=== PATIENT | male | born 1950 | race Caucasian/White ===

== ENCOUNTER 2018-07-09 10:06 | Outpatient (REF) | payer MEDICARE, SELFPAY ==
[2018-07-09 12:21] LABS: Anion Gap 8.7 mmol/L (3-11); BUN 20 mg/dL (7-18); CO2 27.3 mmol/L (21.0-32.0); CREATININE 0.92 mg/dL (0.70-1.30); Calcium 8.8 mg/dL (8.5-10.1); Chloride 106 mmol/L (98-107); Glucose 102 mg/dL (70-100); Sodium 142 mmol/L (136-145)
== END 2018-07-09 10:26 ==
LOC: NCHCN 10:06
PROVIDERS: PCP Internal Medicine; Visit Provider Internal Medicine
DX: I10 Essential (primary) hypertension (principal); N40.0 Benign prostatic hyperplasia without lower urinary tract symptoms; E66.9 Obesity, unspecified
CPT/HCPCS: 80048

== ENCOUNTER 2019-09-13 19:58 | Outpatient (REF) | payer MEDICARE, SELFPAY ==
[2019-09-13 20:39] LABS: Anion Gap 9.8 mmol/L (3-11); BUN 19 mg/dL (7-18); CO2 27.2 mmol/L (21.0-32.0); CREATININE 1.11 mg/dL (0.70-1.30); Calcium 9.1 mg/dL (8.5-10.1); Chloride 105 mmol/L (98-107); Glucose 95 mg/dL (74-106); Potassium 4.1 mmol/L (3.5-5.1); Sodium 142 mmol/L (136-145)
== END 2019-09-13 20:18 ==
LOC: NCHCN 19:58
PROVIDERS: PCP Internal Medicine; Visit Provider Internal Medicine
DX: I10 Essential (primary) hypertension (principal); E66.9 Obesity, unspecified
CPT/HCPCS: 80048

== ENCOUNTER 2020-10-02 08:11 | Outpatient (REF) | payer MEDICARE, SELFPAY ==
[2020-10-02 15:43] LABS: Anion Gap 11.3 mmol/L (3-11); BUN 22 mg/dL (7-18); CO2 24.7 mmol/L (21.0-32.0); CREATININE 1.1 mg/dL (0.70-1.30); Calcium 8.6 mg/dL (8.5-10.1); Chloride 109 mmol/L (98-107); Glucose 137 mg/dL (74-106); Potassium 3.9 mmol/L (3.5-5.1); Sodium 145 mmol/L (136-145); TSH 1.41 uIU/mL (0.36-3.74)
== END 2020-10-02 08:12 | disposition home or self-care (01) ==
LOC: NCHCN 08:11
PROVIDERS: PCP Internal Medicine; Visit Provider Internal Medicine
DX: I10 Essential (primary) hypertension (principal); E66.9 Obesity, unspecified
CPT/HCPCS: 80048; 84443

== ENCOUNTER 2021-04-16 14:46 | Outpatient (REF) | payer MEDICARE, SELFPAY ==
[2021-04-19 13:48] LABS: Testosterone, Free 9.66 ng/dL (3.47-13.0); Testosterone, Total 420 ng/dL (240-950)
== END 2021-04-16 14:47 | disposition home or self-care (01) ==
LOC: NCHCN 14:46
PROVIDERS: PCP Internal Medicine; Visit Provider Family Medicine
DX: F52.21 Male erectile disorder (principal); R53.83 Other fatigue
CPT/HCPCS: 84402; 84403

== ENCOUNTER 2021-10-25 16:10 | Outpatient (REF) | payer MEDICARE, SELFPAY ==
[2021-10-25 20:19] LABS: HCT 41.7 % (40.0-50.0); HGB 13.8 g/dL (13.5-17.5); MCH 28.5 pg (27.0-33.0); MCHC 33.1 % (32.0-36.0); MCV 86 fL (80-95); MPV 9.8 fL (8.0-11.0); Platelet Count 221 10^3/uL (130-400); RBC 4.85 10^6/uL (4.36-5.78); RDW 13.3 % (11.8-14.1); RDW-SD 41.6 fL
[2021-10-25 20:35] LABS: Hemoglobin A1C 5.6 % (<5.7)
[2021-10-25 20:36] LABS: ALT 20 U/L (16-63); AST 19 U/L (15-37); Albumin 3.6 g/dL (3.4-5.0); Alkaline Phosphatase 79 U/L (46-116); Anion Gap 6.2 mmol/L (3-11); BUN 21 mg/dL (7-18); Bilirubin, Total 0.7 mg/dL (0.2-1.0); CO2 27.8 mmol/L (21.0-32.0); Calcium 8.8 mg/dL (8.5-10.1); Calculated LDL 121 mg/dL (<100); Chloride 108 mmol/L (98-107); Cholesterol 175 mg/dL (<200); Glucose 106 mg/dL (74-106); HDL Cholesterol 38 mg/dL (40-60); Potassium 4.1 mmol/L (3.5-5.1); Sodium 142 mmol/L (136-145); Total Protein 7.1 g/dL (6.4-8.2); Triglyceride 83 mg/dL (<150)
== END 2021-10-25 16:11 | disposition home or self-care (01) ==
LOC: NCHCN 16:10
PROVIDERS: PCP Internal Medicine; Visit Provider Family Medicine
DX: I10 Essential (primary) hypertension (principal); E66.9 Obesity, unspecified; R79.89 Other specified abnormal findings of blood chemistry
CPT/HCPCS: 80053; 80061; 85027; 83036

== ENCOUNTER 2022-10-21 08:07 | Outpatient (REF) | payer MEDICARE, SELFPAY ==
[2022-10-21 15:09] LABS: HCT 41.6 % (40.0-50.0); HGB 13.8 g/dL (13.5-17.5); MCH 29.1 pg (27.0-33.0); MCHC 33.2 % (32.0-36.0); MCV 88 fL (80-95); MPV 9.5 fL (8.0-11.0); Platelet Count 219 10^3/uL (130-400); RBC 4.74 10^6/uL (4.36-5.78); RDW 12.9 % (11.8-14.1); RDW-SD 41.2 fL; WBC 6.41 10^3/uL (4.4-10.8)
[2022-10-21 15:17] LABS: Anion Gap 6.8 mmol/L (3-11); BUN 20 mg/dL (7-18); CO2 28.2 mmol/L (21.0-32.0); CREATININE 0.9 mg/dL (0.70-1.30); Calcium 9.1 mg/dL (8.5-10.1); Chloride 108 mmol/L (98-107); Estimated GFR 91.88 (mL/min/1.73m2); Glucose 100 mg/dL (74-106); Potassium 4.3 mmol/L (3.5-5.1); Sodium 143 mmol/L (136-145)
== END 2022-10-21 08:08 | disposition home or self-care (01) ==
LOC: NCHCN 08:07
PROVIDERS: PCP Internal Medicine; Visit Provider Family Medicine
DX: I10 Essential (primary) hypertension (principal); E66.9 Obesity, unspecified
CPT/HCPCS: 80048; 85027

== ENCOUNTER 2023-10-27 16:20 | Outpatient (REF) | payer MEDICARE, SELFPAY ==
[2023-10-27 16:47] LABS: HCT 41.7 % (40.0-50.0); HGB 14.1 g/dL (13.5-17.5); MCH 29.6 pg (27.0-33.0); MCHC 33.8 % (32.0-36.0); MCV 88 fL (80-95); MPV 9.7 fL (8.0-11.0); Platelet Count 206 10^3/uL (130-400); RBC 4.76 10^6/uL (4.36-5.78); RDW 12.8 % (11.8-14.1); RDW-SD 41.1 fL; WBC 5.82 10^3/uL (4.4-10.8)
[2023-10-27 17:21] LABS: ALT 20 U/L (16-63); AST 14 U/L (15-37); Albumin 3.8 g/dL (3.4-5.0); Alkaline Phosphatase 86 U/L (46-116); Anion Gap 7.6 mmol/L (3-11); BUN 15 mg/dL (7-18); Bilirubin, Total 1.18 mg/dL (0.2-1.0); CO2 28.4 mmol/L (21.0-32.0); CREATININE 1.1 mg/dL (0.70-1.30); Calculated LDL 115 mg/dL (<100); Chloride 109 mmol/L (98-107); Cholesterol 171 mg/dL (<200); Estimated GFR 71.77 (mL/min/1.73m2); Glucose 141 mg/dL (74-106); HDL Cholesterol 42 mg/dL (40-60); Potassium 4.4 mmol/L (3.5-5.1); Sodium 145 mmol/L (136-145); Total Protein 6.5 g/dL (6.4-8.2); Triglyceride 70 mg/dL (<150)
== END 2023-10-27 16:21 | disposition home or self-care (01) ==
LOC: NCHCN 16:20
PROVIDERS: PCP Family Medicine; Visit Provider Family Medicine
DX: E66.9 Obesity, unspecified (principal); I10 Essential (primary) hypertension
CPT/HCPCS: 80053; 80061; 85027

== ENCOUNTER 2023-11-03 17:46 | Outpatient (REF) | payer MEDICARE, SELFPAY ==
[2023-11-03 19:12] LABS: Abs Immature Grans 0.01 10^3/uL (0.0-0.06); Absolute Basophil Count 0.04 10^3/uL (0.0-0.2); Absolute Eosinophil Count 0.37 10^3/uL (0.0-0.7); Absolute Monocyte Count 0.48 10^3/uL (0.1-0.8); Absolute Neutrophil Count 3.17 10^3/uL (1.2-6.7); Basophils % 0.7 %; Eosinophils % 6.3 %; HCT 45.5 % (40.0-50.0); HGB 14.7 g/dL (13.5-17.5); Immature Grans % 0.2 %; Lymphocytes % 30.7 %; MCH 29.6 pg (27.0-33.0); MCHC 32.3 % (32.0-36.0); MCV 92 fL (80-95); MPV 9.8 fL (8.0-11.0); Monocytes % 8.2 %; Neutrophils % 53.9 %; Platelet Count 218 10^3/uL (130-400); RBC 4.97 10^6/uL (4.36-5.78); RDW-SD 43.4 fL; WBC 5.87 10^3/uL (4.4-10.8)
[2023-11-03 19:34] LABS: ALT 15 U/L (16-63); AST 16 U/L (15-37); Albumin 3.9 g/dL (3.4-5.0); Alkaline Phosphatase 85 U/L (46-116); Anion Gap 11.3 mmol/L (3-11); BUN 17 mg/dL (7-18); Bilirubin, Total 1.03 mg/dL (0.2-1.0); CO2 27.7 mmol/L (21.0-32.0); Calcium 9.1 mg/dL (8.5-10.1); Chloride 108 mmol/L (98-107); Estimated GFR 80.47 (mL/min/1.73m2); Glucose 91 mg/dL (74-106); Potassium 4.4 mmol/L (3.5-5.1); Sodium 147 mmol/L (136-145); TSH (W/Ref FT4) 1.49 uIU/mL (0.36-3.74); Total Protein 6.7 g/dL (6.4-8.2)
== END 2023-11-03 17:47 | disposition home or self-care (01) ==
LOC: NCHCN 17:46
PROVIDERS: PCP Family Medicine; Visit Provider Family Medicine
DX: I10 Essential (primary) hypertension (principal); R00.8 Other abnormalities of heart beat
CPT/HCPCS: 80053; 84443; 85025

== ENCOUNTER 2023-11-05 16:02 | Outpatient (REF) | payer MEDICARE, SELFPAY ==
--- NOTE | 2023-11-05 08:50 | SKI_PTH ---
PATIENT: Ken Persaud LOC: [facility] U#:[id number] AGE/SX: 73/M ROOM: RE11/05/[address]: Uday Sullivan : 1950 BED: DIS: 11/05/2023 SPEC #: [id number] RECD: 11/05/23 18:22 STATUS: GHAZAL ALEXANDER #: [id number] GATITO: 11/05/23 08:[address]: Uday Sullivan DEPT: Surgical Specimen RECD BY: Ludivina Kingsley Tissues: 1 - SKIN BIOPSY(SHAVE/PUNCH) Procedures: SKIN LEVEL 4 Comments: [id number]
== END 2023-11-05 16:03 | disposition home or self-care (01) ==
LOC: NCHCN 16:02
PROVIDERS: PCP Family Medicine; Visit Provider Family Medicine
DX: C44.519 Basal cell carcinoma of skin of other part of trunk (principal)
CPT/HCPCS: 88305

== ENCOUNTER 2024-10-17 13:36 | Outpatient (CLI) | payer MEDICARE, SELFPAY ==
--- NOTE | 2024-10-17 14:32 | DI.RAD_ITS ---
Exam(s) XR SHOULDER LT COMPLETE 2+V EXAM: XR SHOULDER LT COMPLETE 2+V CLINICAL HISTORY: PAIN LEFT UTEUDLER M25.512. TECHNIQUE: 2D digital imaging was performed. Three views. COMPARISON: No exams were available for comparison FINDINGS: BONES: No acute fracture is present. Find a appearing cystic lesion in the glenoid. Mild spurring at the greater tuberosity. JOINTS: No dislocation present. The lungs maintained. There is mild spurring at the AC joint and glenohumeral joint. SOFT TISSUE: Normal. IMPRESSION: Mild degenerative changes. DATA REPOSITORY: RADIATION DOSE DELIVERED:
== END 2024-10-17 13:56 ==
LOC: DI 13:36
PROVIDERS: PCP Family Medicine; Visit Provider Family Medicine
DX: M25.512 Pain in left shoulder (principal)
CPT/HCPCS: 73030

== ENCOUNTER 2024-11-08 16:09 | Outpatient (REF) | payer MEDICARE, SELFPAY ==
[2024-11-08 17:09] LABS: ALT 29 U/L (16-63); AST 22 U/L (15-37); Albumin 3.7 g/dL (3.4-5.0); Alkaline Phosphatase 65 U/L (46-116); Anion Gap 9.5 mmol/L (3-11); BUN 27 mg/dL (7-18); Bilirubin, Total 0.5 mg/dL (0.2-1.0); CO2 28.5 mmol/L (21.0-32.0); Calcium 9.5 mg/dL (8.5-10.1); Chloride 104 mmol/L (98-107); Estimated GFR 53.40 (mL/min/1.73m2); Glucose 108 mg/dL (74-106); Potassium 4.5 mmol/L (3.5-5.1); Sodium 142 mmol/L (136-145); Total Protein 6.8 g/dL (6.4-8.2)
== END 2024-11-08 16:10 | disposition home or self-care (01) ==
LOC: NCHCN 16:09
PROVIDERS: PCP Family Medicine; Visit Provider Family Medicine
DX: I10 Essential (primary) hypertension (principal)
CPT/HCPCS: 80053

== ENCOUNTER → 2024-11-09 13:53 | Outpatient (BNVA) | payer MEDICARE, SELFPAY | PROVIDERS: PCP Family Medicine; Referring Provider Family Medicine; Visit Provider Student in an Organized Health Care Education/Training Program | DX: M75.102 Unspecified rotator cuff tear or rupture of left shoulder, not specified as traumatic (principal); S46.212A Strain of muscle, fascia and tendon of other parts of biceps, left arm, initial encounter; W01.0XXA Fall on same level from slipping, tripping and stumbling without subsequent striking against object, initial encounter; I10 Essential (primary) hypertension | CPT/HCPCS: 99203 ==

== ENCOUNTER 2024-11-25 05:32 | Outpatient (CLI) | payer MEDICARE, SELFPAY ==
--- NOTE | 2024-11-25 08:30 | DI.US_ITS ---
APPROVED REPORT EXAM: Comprehensive 2D, Doppler, and color-flow Echocardiogram Patient Location: Out-Patient [employer] Reporter: James Storm RDCS (AE) Indications: Persistent Afib Other Information Study Quality: Fair. Technically limited study due to body habitus. Conclusion Normal left ventricular wall thickness and chamber size. Ejection fraction is 50 to 55%. Patient is in atrial fibrillation with [id number]-[id number] variation. There are no segmental wall motion abnormalities Normal right ventricular size and function Both atria are moderately enlarged The aortic valve is sclerotic without stenosis or regurgitation Mild mitral regurgitation Wall motion Left Ventricle Left ventricle is moderately dilated. Left ventricular systolic functionis borderline There is normal left ventricular wall thickness. No segmental wall motion abnormalities There is no ventricular septal defect visualized. LVEF is 50 to 55% %. Right Ventricle The right ventricle is normal size. The right ventricular systolic function is normal. Atria Left atrium is moderately dilated. Right atrium is moderately dilated. The interatrial septum is intact with no evidence for an atrial septal defect. Aortic Valve The aortic valve is sclerotic. There is no aortic valvular stenosis. No aortic regurgitation is present. Mitral Valve The mitral valve is normal in structure. No evidence of mitral valve stenosis. Mild mitral regurgitation. Tricuspid Valve The tricuspid valve is normal in structure. There is no tricuspid valve stenosis. Trace tricuspid regurgitation. Pulmonic Valve The pulmonary valve is normal in structure. There is no pulmonic valvular stenosis. There is no pulmonic valvular regurgitation. Great Vessels The aortic root is normal in size. The ascending aorta is normal in size. Aortic arch is normal in caliber. IVC is normal in size and collapses >50% with inspiration. Pericardium There is no pericardial effusion. 2D Dimensions IVSD d PLAX 1.02 cm M: 0.6-1.2 Ao Root d 3.38 cm M: 3.1 - 3.7 LVPW d PLAX 0.95 cm M: 0.6 - 1.2 Ao Asc Diam d 3.67 cm M: 2.6 - 3.4 LVID d PLAX 7.72 cm M: 4.2 - 5.8 LVDs 5.93 cm M: 2.5 - 4.0 LV EF Teichholz 44.9 % FS 23.14 % LV EDV (Teich) 317.8 mL LV ESV (Teich) 175.2 mL Stroke Vol Index (Teich) 57.73 M-Mode TAPSE 2.72 cm (M/F) >1.7 Auto EF LV EDV A4C 248.5 mL LV EDV A2C 192.6 mL LV EDV BP 213.9 mL LV ESV A4C 142.1 mL LV ESV A2C 116.4 mL LV ESV BP 126.4 mL LVEF(%) A4C 42.8 % LVEF(%) A2C 39.6 % LVEF(%) BP 40.9 % LV SV A4C 106.4 ml LV SV A2C 76.3 ml LV SV BP 87.4 ml LV CO A4C 10.1 L/min LV CO A2C 8.6 L/min LV CO BP 9.4 L/min HR A4C 95.24 BPM HR A2C 113.22 BPM LV EDV Index (BP) LA Volume LA Length A4C 5.9 cm LA Length A2C 7.5 cm LA Area A4C s 20.96 cm2 LA Area A2C s 33.48 cm2 LA Vol A4C A-L 63.73 mL LA Vol A2C A-L 126.46 mL LA Vol Biplane A- L 101.8 mL LA Vol/BSA A4C A-L LA Vol/BSA A2C A-L LA Vol/BSA BP A-L 41.2 mL/m2 LA Vol A4C MOD 60.0 mL LA Vol A2C MOD 120.8 mL LA Vol BP MOD 95.4 mL RA Volume RA Area A4C 12.8 cm2 RA ESV A4C (A-L) 29.1mL RA Vol/BSA A4C A-L RA Length A4C 4.7 cm RA ESV A4C (MOD) 27.9mL LV Diastology MV E' medial 0.074 (>0.07 m/s) MV E Vmax 1.05 (0.4-1.3 m/s) MV E/E' MED 14.20 (<14) MV A Vmax 0.75 (0.4-1.3 m/s) MV E' lateral 0.137 (>0.1 m/s) E/A Ratio 1.4 MV E/E' LAT 7.69 (<14) MV E' Average 0.105 m/s MV E/E'(average) 9.97 Aortic Valve AoV Vmax 1.25 m/s LVOT Vmax 1.05 m/s AoV Peak Grad 6.2 mmHg LVOT Peak Grad 4.4 mmHg AoV Area (Vmax) 3.83 cm2 LVOT VTI 0.237 m AoV VTI 0.255 m LVOT Mean Grad 2.4 mmHg AoV Mean Moody. 0.81 m/s LVOT SV 108.17 mL AoV Mean Grad 3.1 mmHg LVOT Diam s 2.40 cm AoV Area (VTI) 4.23 cm2 AV Regurg Peak Gr. 6.23 mmHg Velocity Ratio 0.84 Mitral Valve MV DT 129 (160-240 msec) Pulmonary Valve PV Vmax 0.92 (0.5-1.5 m/s) RVOT Vmax 0.71 m/s PV Peak Grad 3.5 mmHg RVOT Peak Gr. 2.0 mmHg PV Mean Moody 0.73 m/s RVOT VTI 0.160 m PV Mean Grad 2.3 mmHg RVOT Mean Gr. 1.1 mmHg
== END 2024-11-25 05:52 ==
LOC: DI 05:32
PROVIDERS: PCP Family Medicine; Visit Provider Internal Medicine Cardiovascular Disease
DX: I48.19 Other persistent atrial fibrillation (principal)
CPT/HCPCS: 93306